=== PATIENT | male | born 1980 | race Two or more races ===

== ENCOUNTER 2018-09-30 13:27 | Inpatient (IN) | payer OTHER ==
[2018-09-30 14:31] VITALS: BMI 36.0
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
[2018-09-30] MEDS ORDERED: P-EPHED 60MG/TRIPROLIDI 2.5MG TABLET PO PRN (15:38)
[2018-09-30] MEDS ORDERED: MAGNESIUM CITRATE 300 ML BOTTLE PO PRN (15:38)
[2018-09-30] MEDS ORDERED: MENTHOL/PHENOL 1 EACH UD MM PRN (15:38)
[2018-09-30] MEDS ORDERED: MAG HYDROX/AL HYDROX/SIMETH 30 ML UNIT-DOSE CUP PO PRN (15:38)
[2018-09-30] MEDS ORDERED: guaiFENesin/D-METHORPHAN HB 10 ML UNIT-DOSE CUPS PO PRN (15:38)
[2018-09-30] MEDS ORDERED: LOPERAMIDE HCL 2 MG CAPSULE PO PRN (15:38)
[2018-09-30] MEDS ORDERED: MAGNESIUM HYDROX 2400MG/30ML ORAL SUSPENSION 30 ML CUP PO PRN (15:38)
[2018-09-30] MEDS ORDERED: ACETAMINOPHEN 325 MG TABLET (FP) PO PRN (15:38)
[2018-09-30] MEDS ORDERED: NICOTINE POLACRILEX 4 MG GUM BC PRN (15:38)
[2018-09-30] MEDS ORDERED: METHADONE HCL 10 MG TABLET (FOR DETOX USE ONLY) PO ONE ×2 (16:45→23:00)
[2018-09-30] MEDS: CHLORHEXIDINE GLUCONATE 0.12% 15ML CUP MM SCH ×2 (17:30→19:25)
[2018-09-30] MEDS: BACITRACIN 0.9 GM PACKET TP SCH (17:55)
[2018-09-30] MEDS: diazePAM 5 MG TABLET PO PRN (17:55)
[2018-09-30] MEDS: IBUPROFEN 400 MG TABLET (FP) PO PRN (17:55)
[2018-09-30] MEDS: NICOTINE 21 MG/24 HOURS TOPICAL PATCH TD SCH (18:30)
[2018-09-30] MEDS ORDERED: MELATONIN 5 MG TABLETS PO PRN (22:00)
[2018-09-30] MEDS: THIAMINE HCL 100 MG TABLET (FP) PO SCH (22:27)
[2018-10-01] MEDS: diazePAM 5 MG TABLET PO PRN ×4 (03:15→22:12)
[2018-10-01] MEDS: IBUPROFEN 400 MG TABLET (FP) PO PRN (03:15)
[2018-10-01] MEDS: CHLORHEXIDINE GLUCONATE 0.12% 15ML CUP MM SCH ×3 (09:05→17:45)
[2018-10-01] MEDS ORDERED: METHADONE HCL 10 MG TABLET (FOR DETOX USE ONLY) PO ONE (10:00)
[2018-10-01] MEDS: BACITRACIN 0.9 GM PACKET TP SCH (10:30)
[2018-10-01] MEDS: PRENATAL VITAMINS W/ FOLIC ACID TABLET (FP) PO SCH (10:30)
[2018-10-01] MEDS: NICOTINE 21 MG/24 HOURS TOPICAL PATCH TD SCH (10:31)
[2018-10-01 10:53] LABS: HEMATOCRIT 39.5 % (35.4-49); HEMOGLOBIN 14.1 GM/dL (11.7-16.9); MCH 34.1 pg (25.7-33.7); MCHC 35.6 g/dl (32.0-35.9); MEAN CELL VOLUME 95.6 fl (80-96); MEAN PLT VOLUME 8.2 fl (7.5-11.1); PLATELET COUNT 211 K/MM3 (134-434); RBC 4.13 M/mm3 (4.00-5.60); RDW 12.9 % (11.9-15.9); WHITE BLOOD COUNT 6.1 K/mm3 (4.0-10.0)
[2018-10-01 11:13] LABS: ALBUMIN 3.5 g/dl (3.4-5.0); ALK PHOS 48 U/L (45-117); ANION GAP 7 MMOL/L (8-16); BILIRUBIN,TOTAL 0.7 mg/dL (0.2-1); BLOOD UREA NITROGEN 15 mg/dL (7-18); CALCIUM 8.7 mg/dL (8.5-10.1); CHLORIDE 107 mmol/L (98-107); CO2 27 mmol/L (21-32); CREATININE 0.8 mg/dL (0.55-1.3); GLUCOSE,RANDOM 84 mg/dL (74-106); POTASSIUM 3.9 mmol/L (3.5-5.1); SGOT/AST 17 U/L (15-37); SGPT/ALT 28 U/L (13-61); SODIUM 141 mmol/L (136-145); TOT PROT 6.4 g/dl (6.4-8.2)
--- NOTE | 2018-10-01 13:36 | PN ---
[facility] COWS - Scale Resting Pulse: 1= DC 81-100 Sweatin= Chills/Flushing Restless Observation: 0= Sits Still Pupil Size: 0= Normal to Room Light Bone or Joint Aches: 2= Severe Diffuse Aches Runny Nose/ Eye Tearin= Nasal Congestion GI Upset > 30mins: 0= None Tremor Observation of Outstretched Hands: 2= Slight Tremor Visible Yawning Observation: 1= 1-2x During Session Anxiety or Irritability: 2=Irritable/Anxious Goose Flesh Skin: 0=Smooth Skin COWS Score: 10 BHS Progress Note (SOAP) Subjective: Sweating, Fatigue, Body Aches. Objective: PATIENT A & O X 3. IN NO ACUTE DISTRESS. 10/01/18 13:37 Vital Signs Temperature 97.2 F L 10/01/18 13:28 Pulse Rate 87 10/01/18 13:28 Respiratory Rate 18 10/01/18 13:28 Blood Pressure 115/67 10/01/18 13:28 O2 Sat by Pulse Oximetry (%) Laboratory Tests 10/01/18 10/01/18 10/01/18 07:00 07:00 07:00 WBC 6.1 RBC 4.13 Hgb 14.1 Hct 39.5 MCV 95.6 MCH 34.1 H MCHC 35.6 RDW 12.9 Plt Count 211 MPV 8.2 Sodium 141 Potassium 3.9 Chloride 107 Carbon Dioxide 27 Anion Gap 7 L BUN 15 Creatinine 0.8 Creat Clearance w eGFR > 60 Random Glucose 84 Calcium 8.7 Total Bilirubin 0.7 AST 17 ALT 28 Alkaline Phosphatase 48 Total Protein 6.4 Albumin 3.5 RPR Titer Nonreactive LABS NOTED. Assessment: 10/01/18 13:37 WITHDRAWAL SYMPTOMS. Plan: CONTINUE DETOX.
[2018-10-01] MEDS: THIAMINE HCL 100 MG TABLET (FP) PO SCH (22:12)
[2018-10-02 09:17] VITALS: TEMP 98.1
[2018-10-02] MEDS: diazePAM 5 MG TABLET PO PRN (09:17)
[2018-10-02] MEDS ORDERED: METHADONE HCL 5 MG TABLET (FOR DETOX USE ONLY) PO ONE (10:00)
[2018-10-02] MEDS: CHLORHEXIDINE GLUCONATE 0.12% 15ML CUP MM SCH ×2 (10:40→14:23)
[2018-10-02] MEDS: NICOTINE 21 MG/24 HOURS TOPICAL PATCH TD SCH (10:41)
[2018-10-02] MEDS: PRENATAL VITAMINS W/ FOLIC ACID TABLET (FP) PO SCH (10:41)
[2018-10-02] MEDS: BACITRACIN 0.9 GM PACKET TP SCH (10:41)
[2018-10-02 13:46] VITALS: BP 150/79; PULSE 67
[2018-10-02] MEDS ORDERED: cloNIDine HCL 0.1 MG TABLET PO PRN (15:21)
[2018-10-02] MEDS ORDERED: hydrOXYzine PAMOATE 25 MG CAPSULE (FP) PO PRN (15:21)
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
--- NOTE | 2018-10-02 15:30 | PN ---
[facility] COWS - Scale Resting Pulse: 1= CO 81-100 Sweatin= Chills/Flushing Restless Observation: 3= Extraneous Movement Pupil Size: 0= Normal to Room Light Bone or Joint Aches: 1= Mild Discomfort Runny Nose/ Eye Tearin= Nasal Congestion GI Upset > 30mins: 1= Stomach Cramp Tremor Observation of Outstretched Hands: 1= Tremor Sargeant, Not Seen Yawning Observation: 0= None Anxiety or Irritability: 1=Feels Anxious/Irritable Goose Flesh Skin: 0=Smooth Skin COWS Score: 10 BHS Progress Note (SOAP) Subjective: pt states still feeling anxious and irritable- using valium prn O: Vital Signs - 24 hr 10/01/18 10/01/18 10/02/18 17:48 20:58 00:30 Temperature 98.2 F 97.3 F L Pulse Rate 64 61 Respiratory 16 18 18 Rate Blood Pressure 115/69 142/74 10/02/18 10/02/18 10/02/18 03:30 08:08 09:16 Temperature 97.7 F 98.1 F Pulse Rate 59 L 78 Respiratory 18 18 20 Rate Blood Pressure 116/76 149/68 10/02/18 13:45 Temperature 98.1 F Pulse Rate 67 Respiratory 18 Rate Blood Pressure 150/79 Laboratory Tests 10/01/18 10/01/18 10/01/18 07:00 07:00 07:00 WBC 6.1 RBC 4.13 Hgb 14.1 Hct 39.5 MCV 95.6 MCH 34.1 H MCHC 35.6 RDW 12.9 Plt Count 211 MPV 8.2 Sodium 141 Potassium 3.9 Chloride 107 Carbon Dioxide 27 Anion Gap 7 L BUN 15 Creatinine 0.8 Creat Clearance w eGFR > 60 Random Glucose 84 Calcium 8.7 Total Bilirubin 0.7 AST 17 ALT 28 Alkaline Phosphatase 48 Total Protein 6.4 Albumin 3.5 RPR Titer Nonreactive a/p: continue methadone detox- pt stable will add clonidine and vistaril for Sx management
[2018-10-03] MEDS ORDERED: METHADONE HCL 5 MG TABLET (FOR DETOX USE ONLY) PO ONE (10:00)
[2018-10-04] MEDS ORDERED: METHADONE HCL 10 MG TABLET (FOR DETOX USE ONLY) PO ONE (10:00)
[2018-10-05] MEDS ORDERED: METHADONE HCL 5 MG TABLET (FOR DETOX USE ONLY) PO ONE (06:00)
== END 2018-10-02 03:20 | disposition left against medical advice (07) | DRG 770 ==
LOC: YASAS 13:27 → Y6N 16:22
PROVIDERS: ADMIT Neuromusculoskeletal Medicine & OMM; ATTEND Neuromusculoskeletal Medicine & OMM
PROC: HZ2ZZZZ Detoxification Services for Substance Abuse Treatment (ICD-10-PCS; principal; 2018-09-30)
DX: F11.23 Opioid dependence with withdrawal (principal); F17.213 Nicotine dependence, cigarettes, with withdrawal; K08.9 Disorder of teeth and supporting structures, unspecified
CPT/HCPCS: 36415; 80053; 85027; 86593